=== PATIENT | female | born 1970 | race Two or more races ===

== ENCOUNTER 2020-02-23 16:16 | Emergency (ER) | payer OTHER ==
[~2020-02-23] VITALS: Ht 162.6 cm; Wt 79.4 kg
[~2020-02-23 16:16] MED LIST: IBUPROFEN600 MG PO
--- NOTE | 2020-02-23 16:34 | NUR ---
ED Nurse Note: pt presents to ED with skin irritation after an unk liquid was spilled on her while she was at work. 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 skin is still intact, appears to be red
[2020-02-23 16:36] VITALS: BP 115/76
--- NOTE | 2020-02-23 16:37 | Emergency Room Report ---
History of Present Illness General Chief Complaint: Skin Rash/Abscess Source: Patient Present Illness HPI 49-year-old female with no significant past medical history here complaining of a pruritic and painful rash on right upper and medial side of forearm x4 days. Patient reports that it started after she was putting trash at work and that big garbage band is an unknown liquid sinus pulling on the affected side. Has not been applying any medication. The affected area is warm to touch and appears to be contact dermatitis that is infected. Denies any tingling or numbness. Denies changes in range of motion. Denies fever chills, chest pain, shortness of breath, no other associated symptoms. Denies . Allergies: Coded Allergies: No Known Allergies (Unverified , 02/23/20) COVID-19 Screening Contact w/high risk pt: No Recent Travel to affected area: No Experienced COVID-19 symptoms?: No COVID-19 Testing performed [employer]: No Patient History Past Medical History: see triage record Past Surgical History: none Pertinent Family History: none Last Menstrual Period: n/a Now: No Immunizations: UTD Reviewed Nursing Documentation: PMH: Agreed; PSxH: Agreed Nursing Documentation-PMH Past Medical History: No History, Except For Review of Systems All Other Systems: negative except mentioned in HPI Physical Exam Vital Signs Date Time Temp Pulse Resp B/P (MAP) Pulse Ox O2 Delivery O2 Flow Rate FiO2 02/23/20 16:26 98.1 71 18 115/76 (89) 95 Room Air Sp02 EP Interpretation: reviewed, normal General Appearance: no apparent distress, alert, GCS 15, non-toxic Head: normocephalic, atraumatic Eyes: bilateral eye normal inspection, bilateral eye PERRL ENT: hearing grossly normal, normal pharynx, no angioedema, normal voice Neck: full range of motion, supple/symm/no masses Respiratory: chest non-tender, lungs clear, normal breath sounds, no rhonchi, no wheezing, speaking full sentences Cardiovascular #1: regular rate, rhythm, no edema, no murmur Cardiovascular #2: 2+ radial (R), 2+ radial (L) Gastrointestinal: normal bowel sounds, non tender, soft, non-distended, no guarding, no rebound Rectal: deferred Genitourinary: no CVA tenderness Musculoskeletal: back normal Neurologic: alert, motor strength/tone normal, oriented x3, sensory intact, responsive, speech normal Psychiatric: judgement/insight normal, memory normal, mood/affect normal, no suicidal/homicidal ideation Skin: rash - Contact dermatitis right medial forearm and inner upper arm and warm to touch Lymphatic: no adenopathy Medical Decision Making PA Attestation All diagnoses and treatment plans were reviewed and discussed with my supervising physician Dr. Gomez Diagnostic Impression: Primary Impression: Cellulitis Additional Impression: Contact dermatitis ER Course 49-year-old female with no significant past medical history here complaining of a pruritic and painful rash on right upper and medial side of forearm x4 days. Patient reports that it started after she was putting trash at work and that big garbage band is an unknown liquid sinus pulling on the affected side. Has not been applying any medication. The affected area is warm to touch and appears to be contact dermatitis that is infected. Denies any tingling or numbness. Denies changes in range of motion. Denies fever chills, chest pain, shortness of breath, no other associated symptoms. Denies . Ddx considered but are not limited to : Cellulitis, contact dermatitis, superficial infection, abscess Vital signs: are WNL, pt. is afebrile H&PE are most consistent with: Cellulitis and contact dermatitis ORDERS: Augmentin, prednisone, hydrocortisone cream ED INTERVENTIONS: None required at this time. DISCHARGE: At this time pt. is stable for d/c to home. Will provide printed patient care instructions, and any necessary prescriptions. Care plan and follow up instructions have been discussed with the patient prior to discharge. Patient take medication as directed, follow primary doctor, if worsening symptoms return to the emergency room Last Vital Signs Date Time Temp Pulse Resp B/P (MAP) Pulse Ox O2 Delivery O2 Flow Rate FiO2 02/23/20 16:26 98.1 71 18 115/76 (89) 95 Room Air Disposition: HOME, SELF-CARE Condition: Stable Scripts Hydrocortisone/Aloe (Hydrocortisone/Aloe 1% Cream*) Y Cr 1 APPLIC TOPIC Q6H PRN for Itching, #30 GM Prov: Sonya Madden 02/23/20 Prednisone* (PREDNISONE*) 20 Mg Tablet 20 MG ORAL DAILY for 5 Days, #5 TAB 0 Refills Prov: Sonya Madden 02/23/20 Amoxicillin/Potassium Clav 875-125* (AUGMENTIN 875-125 TABLET*) 1 Each Tablet 1 TAB ORAL TWICE A DAY for 7 Days, #14 TAB Prov: Sonya Madden 02/23/20 Patient Instructions: Cellulitis, [id number], Contact Dermatitis, Easy-to- Read Additional Instructions: Take medication as been prescribed, follow primary doctor, if worsening symptoms return to emergency room Sonya Madden February 23, 2020 16:37
[2020-02-23] MEDS ORDERED: AUGMENTIN 875-1 EAC1 ORAL (16:38)
[2020-02-23] MEDS ORDERED: HYDROCORTISONE-30 GM TOPIC (16:38)
[2020-02-23] MEDS ORDERED: PREDNISONE20 MG ORAL (16:38)
[2020-02-23 16:45] VITALS: BP 115/76
--- NOTE | 2020-02-23 16:45 | NUR ---
ER DISCHARGE NOTE: Patient is cleared to be discharged per ERMD, pt is aox4, on room air, with stable vital signs. pt was given dc and prescription instructions, pt was able to verbalize understanding, pt id band removed without complications. pt is able to ambulate with steady gait. pt took all belongings.
== END 2020-02-23 16:50 | disposition home or self-care (01) ==
LOC: MERGE 16:45 → EMR 16:45
DX: L25.9 Unspecified contact dermatitis, unspecified cause (principal); L03.90 Cellulitis, unspecified
CPT/HCPCS: 99282